=== PATIENT | female | born 1995 | race Caucasian/White ===

== ENCOUNTER 2018-08-14 19:45 | Emergency (ER) | payer BC ==
[~2018-08-14] VITALS: Ht 160 cm; Wt 61.2 kg
[2018-08-14 20:20] VITALS: BP 130/80
--- NOTE | 2018-08-14 20:28 | NUR ---
PT DECIEDED NOT TO BE SEEN BY MD AFTER TRIAGE.
== END 2018-08-14 22:02 | disposition left against medical advice (07) ==
LOC: ER 19:56
DX: M25.562 Pain in left knee (principal); Z53.21 Procedure and treatment not carried out due to patient leaving prior to being seen by health care provider
CPT/HCPCS: A4606; Z7610